=== PATIENT | male | born 1980 | race Caucasian/White ===

== ENCOUNTER 2016-04-09 20:59 | Emergency (ER) | payer BC, MEDICAID ==
[~2016-04-09] VITALS: Ht 185.4 cm; Wt 69.2 kg
[~2016-04-09 20:59] MED LIST: ZOFR4TAB3 SL
[2016-04-09 21:26] VITALS: BP 107/74; PULSE 84; RESP 20; TEMP 98.3; O2SAT 98
== END 2016-04-09 23:34 | disposition left against medical advice (07) ==
LOC: PHED 20:59
DX: S69.92XA Unspecified injury of left wrist, hand and finger(s), initial encounter (principal); Y28.8XXA Contact with other sharp object, undetermined intent, initial encounter; Y93.9 Activity, unspecified; Y92.9 Unspecified place or not applicable; Y99.9 Unspecified external cause status
CPT/HCPCS: 99281